=== PATIENT | female | born 1980 ===

== ENCOUNTER → 2019-02-08 12:07 | Outpatient (CLI) | payer OTHER ==
[~2019-02-08 12:07] MED LIST: COLACE100 MG PO; NEURONTIN300 MG PO; PERCOCET 5-3251 EACH PO; SYNTHROID75 MCG PO
== END | disposition home or self-care (01) ==
LOC: EKG 12:07
DX: I10 Essential (primary) hypertension (principal); Z01.810 Encounter for preprocedural cardiovascular examination

== ENCOUNTER 2019-02-08 13:13 | Outpatient (CLI) | payer OTHER ==
[~2019-02-08 13:13] MED LIST changes: -COLACE100 MG PO; -NEURONTIN300 MG PO; -PERCOCET 5-3251 EACH PO
== END 2019-02-08 13:33 | disposition home or self-care (01) ==
LOC: LAB 13:13
DX: Z01.818 Encounter for other preprocedural examination (principal)

== ENCOUNTER 2019-02-16 05:12 | Day surgery (SDC) | payer OTHER ==
[2019-02-16] MEDS ORDERED: COLACE100 MG PO (11:35)
[2019-02-16] MEDS ORDERED: PERCOCET 5-3251 EACH PO (11:35)
[2019-02-16] MEDS ORDERED: NEURONTIN300 MG PO (11:35)
== END 2019-02-16 18:15 | disposition home or self-care (01) ==
LOC: CIR.AMB 05:12
DX: K43.0 Incisional hernia with obstruction, without gangrene (principal)